=== PATIENT | male | born 1985 | race Caucasian/White ===

== ENCOUNTER 2022-12-26 09:14 | Emergency (ER) | payer BC ==
[2022-12-26] MEDS ORDERED: Lidocaine 1% (PF) 30 ML VIAL ONE ×2 (11:37→11:51)
[2022-12-26] MEDS ORDERED: Bacitracin 1 PK ONE (11:55)
[2022-12-26] MEDS ORDERED: Boostrix 0.5 ML (Tdap) VIAL (>/=7 yrs of age) ONE (12:38)
== END 2022-12-26 13:05 | disposition home or self-care (01) ==
LOC: ERS 09:14
DX: S61.215A Laceration without foreign body of left ring finger without damage to nail, initial encounter (principal); S61.217A Laceration without foreign body of left little finger without damage to nail, initial encounter; W26.0XXA Contact with knife, initial encounter; Z23 Encounter for immunization
CPT/HCPCS: 12002; 90471; 90715; J2001